=== PATIENT | female | born 1995 | race Two or more races ===

== ENCOUNTER 2019-08-09 21:15 | Emergency (ER) | payer BC ==
[~2019-08-09] VITALS: Ht 157.5 cm; Wt 63.0 kg
[2019-08-09] MEDS ORDERED: KETOROLAC 60MG/2ML VIAL IM ONE (22:30)
[2019-08-09 22:34] LABS: CLARITY URINE CLOUDY (CLEAR); COLOR URINE YELLOW (YELLOW); KETONES URINE NEGATIVE (NEGATIVE); LEUKOCYTE ESTERASE URINE 2+ (NEGATIVE); NITRITE URINE NEGATIVE (NEGATIVE); OCCULT BLOOD URINE 3+ (NEGATIVE); PH URINE 5.5 (4.5-8.0); PROTEIN URINE TRACE (NEGATIVE); SPECIFIC GRAVITY URINE 1.023 (1.005-1.030); UROBILINOGEN URINE 0.2 E.U./dL (0.2-1.0)
[2019-08-09 23:41] VITALS: BP 116/69
== END 2019-08-09 23:43 | disposition home or self-care (01) ==
LOC: ER 21:15
DX: N39.0 Urinary tract infection, site not specified (principal)
CPT/HCPCS: 81003; 81025; 87086; 96372; 99283; J1885

== ENCOUNTER 2021-12-27 20:47 | Emergency (ER) | payer BC ==
[~2021-12-27] VITALS: Ht 165.1 cm; Wt 79.0 kg
[2021-12-27 21:40] VITALS: BP 107/68
[2021-12-27 23:31] LABS: HEMATOCRIT. 38.8 % (36.0-48.0); HEMOGLOBIN. 12.9 g/dL (12.0-16.0); LYMPHOCYTES % 30.8 % (20.0-50.0); MEAN CORPUSCULAR HEMOGLOBIN 28.5 pg (28.0-32.0); MEAN CORPUSCULAR VOLUME 85.9 fL (81.0-99.0); MEAN PLATELET VOLUME 7.9 fl (7.4-10.4); MONOCYTES % 7.1 % (2.0-8.0); NEUTROPHILS % 60.1 % (40.0-76.0); PLATELET 392 x1000/uL (130-400); RED BLOOD CELL COUNT 4.51 mill/uL (4.2-5.4); RED CELL DISTRIBUTION WIDTH 14.2 % (11.6-14.6)
[2021-12-27 23:38] LABS: CHLORIDE 106 mEq/L (98-107)
[2021-12-27 23:49] LABS: B-HCG QUANTITATIVE 2 mIU/mL (<3)
== END 2021-12-28 00:28 | disposition home or self-care (01) ==
LOC: ER 20:47
DX: O46.91 Antepartum hemorrhage, unspecified, first trimester (principal); Z3A.01 Less than 8 weeks gestation of pregnancy
CPT/HCPCS: 36415; 76830; 76856; 80053; 81025; 84702; 85025; 86850; 86900; 99284

== ENCOUNTER 2022-03-28 01:06 | Emergency (ER) | payer BC, OTHER ==
[~2022-03-28] VITALS: Ht 157.5 cm; Wt 76.0 kg
[2022-03-28 03:28] LABS: BASOPHILS % 0.8 % (0.0-2.0); EOSINOPHILS % 0.8 % (0.0-5.0); HEMATOCRIT. 37.4 % (36.0-48.0); HEMOGLOBIN. 12.6 g/dL (12.0-16.0); LYMPHOCYTES % 27.2 % (20.0-50.0); MEAN CORPUSCULAR HEMOGLOBIN 28.5 pg (28.0-32.0); MEAN CORPUSCULAR VOLUME 84.9 fL (81.0-99.0); MEAN PLATELET VOLUME 7.6 fl (7.4-10.4); MONOCYTES % 8.3 % (2.0-8.0); NEUTROPHILS % 62.9 % (40.0-76.0); PLATELET 394 x1000/uL (130-400); RED CELL DISTRIBUTION WIDTH 15.4 % (11.6-14.6)
[2022-03-28 03:31] LABS: CHLORIDE 106 mEq/L (98-107)
[2022-03-28 03:53] LABS: B-HCG QUANTITATIVE 79376 mIU/mL (<3)
[2022-03-28 03:55] LABS: CLARITY URINE CLOUDY (CLEAR); COLOR URINE YELLOW (YELLOW); KETONES URINE TRACE (NEGATIVE); LEUKOCYTE ESTERASE URINE TRACE (NEGATIVE); NITRITE URINE NEGATIVE (NEGATIVE); OCCULT BLOOD URINE NEGATIVE (NEGATIVE); PH URINE 5.5 (4.5-8.0); PROTEIN URINE NEGATIVE (NEGATIVE); SPECIFIC GRAVITY URINE 1.026 (1.005-1.030)
[2022-03-28 04:30] VITALS: BP 125/80
[2022-03-28] MEDS ORDERED: CEPH500C2 MT (04:44)
[2022-03-28] MEDS ORDERED: CEPHALEXIN 250MG CAPSULE PO NR (04:45)
== END 2022-03-28 05:00 | disposition home or self-care (01) ==
LOC: ER 01:06
DX: O23.41 Unspecified infection of urinary tract in pregnancy, first trimester (principal); N39.0 Urinary tract infection, site not specified; Z3A.09 9 weeks gestation of pregnancy
CPT/HCPCS: 36415; 76801; 80053; 81003; 81025; 84702; 85025; 86850; 86900; 99284

== ENCOUNTER 2022-05-14 15:21 | Emergency (ER) | payer BC, OTHER ==
[~2022-05-14] VITALS: Ht 160 cm; Wt 75.0 kg
[~2022-05-14 15:21] MED LIST: CEPH500C2 MT
[2022-05-14 16:31] LABS: CLARITY URINE CLOUDY (CLEAR); COLOR URINE YELLOW (YELLOW); KETONES URINE NEGATIVE (NEGATIVE); LEUKOCYTE ESTERASE URINE TRACE (NEGATIVE); NITRITE URINE NEGATIVE (NEGATIVE); OCCULT BLOOD URINE NEGATIVE (NEGATIVE); PROTEIN URINE TRACE (NEGATIVE); SPECIFIC GRAVITY URINE 1.024 (1.005-1.030); UROBILINOGEN URINE 0.2 E.U./dL (0.2-1.0)
[2022-05-14 17:01] LABS: BASOPHILS % 0.5 % (0.0-2.0); EOSINOPHILS % 0.6 % (0.0-5.0); HEMATOCRIT. 33.9 % (36.0-48.0); HEMOGLOBIN. 11.3 g/dL (12.0-16.0); LYMPHOCYTES % 15.3 % (20.0-50.0); MEAN CORPUSCULAR HEMOGLOBIN 29.2 pg (28.0-32.0); MEAN CORPUSCULAR VOLUME 87.1 fL (81.0-99.0); MEAN PLATELET VOLUME 7.9 fl (7.4-10.4); NEUTROPHILS % 76.6 % (40.0-76.0); PLATELET 342 x1000/uL (130-400); RED BLOOD CELL COUNT 3.89 mill/uL (4.2-5.4); RED CELL DISTRIBUTION WIDTH 15.1 % (11.6-14.6)
[2022-05-14 17:03] LABS: CHLORIDE 107 mEq/L (98-107); PROTHROMBIN TIME 10.5 sec (9.6-11.0)
[2022-05-14 17:28] LABS: B-HCG QUANTITATIVE 8284 mIU/mL (<3)
[2022-05-14 18:00] VITALS: BP 99/51
== END 2022-05-14 18:43 | disposition home or self-care (01) ==
LOC: ER 15:21
DX: O26.892 Other specified pregnancy related conditions, second trimester (principal); R19.7 Diarrhea, unspecified; R55 Syncope and collapse; Z3A.18 18 weeks gestation of pregnancy
CPT/HCPCS: 36415; 76805; 80053; 81003; 81025; 82962; 84702; 85025; 86850; 86900; 93005; 99285

== ENCOUNTER 2022-08-19 20:56 | Observation (INO) | payer MEDICAID, OTHER ==
[~2022-08-19] VITALS: Ht 157.5 cm; Wt 90.7 kg
[2022-08-19 21:31] VITALS: BP 106/74
[2022-08-19] MEDS ORDERED: TOPUD MT (23:04)
[2022-08-19] MEDS ORDERED: DIPH25CA83 MT ×2 (23:04)
[2022-08-20] MEDS ORDERED: PREN1TAB78 PO (01:02)
[2022-08-20] MEDS ORDERED: FERR325T6 PO (01:02)
== END 2022-08-20 02:45 | disposition home or self-care (01) ==
LOC: ER 20:56 → 8 EST LDRP 08-20 00:28 → 8 EST A/PP 08-20 02:01 → 8 EST LDRP 08-20 02:09
PROVIDERS: ADMIT Specialist; ATTEND Specialist
DX: O99.513 Diseases of the respiratory system complicating pregnancy, third trimester (principal); Z20.822 Contact with and (suspected) exposure to COVID-19; R05.9 Cough, unspecified; R09.81 Nasal congestion; O98.513 Other viral diseases complicating pregnancy, third trimester; B34.9 Viral infection, unspecified; Z3A.31 31 weeks gestation of pregnancy; Z79.899 Other long term (current) drug therapy; Z98.890 Other specified postprocedural states; Z98.891 History of uterine scar from previous surgery
CPT/HCPCS: 59025; 87420; 87426; 87804; 99284; C9803; G0378

== ENCOUNTER 2025-01-23 07:37 | Emergency (ER) | payer MEDICAID, OTHER ==
[~2025-01-23] VITALS: Ht 165.1 cm; Wt 75.0 kg
[~2025-01-23 07:37] MED LIST changes: -CEPH500C2 MT; +FERR325T6 PO; +PREN1TAB78 PO; +TOPUD MT
[2025-01-23 07:41] VITALS: O2SAT 99
[2025-01-23 07:45] VITALS: TEMP 36.9; O2SAT 98
[2025-01-23 08:08] VITALS: BP 125/80; PULSE 76; RESP 18
[2025-01-23] MEDS: IBUPROFEN 400MG TABLET PO ONE (08:08)
[2025-01-23] MEDS: ACETAMINOPHEN WITH CODEINE 300/30MG TABLET PO ONE (08:08)
[2025-01-23] MEDS ORDERED: TOPUD PO (09:32)
== END 2025-01-23 09:54 | disposition home or self-care (01) ==
LOC: ER 07:37
DX: M54.50 Low back pain, unspecified (principal); M53.3 Sacrococcygeal disorders, not elsewhere classified; Z79.899 Other long term (current) drug therapy
CPT/HCPCS: 72100; 99283

== ENCOUNTER 2025-03-18 03:58 | Emergency (ER) | payer MEDICAID ==
[~2025-03-18] VITALS: Ht 157.5 cm; Wt 78.0 kg
[~2025-03-18 03:58] MED LIST changes: +TOPUD PO
[2025-03-18 04:07] VITALS: PULSE 85; RESP 18; O2SAT 99
[2025-03-18 04:15] VITALS: BP 123/76; TEMP 36.8; O2SAT 99
[2025-03-18 05:26] LABS: BASOPHILS % 0.5 % (0.0-2.0); EOSINOPHILS % 0.6 % (0.0-5.0); HEMATOCRIT. 37.2 % (36.0-48.0); HEMOGLOBIN. 12.3 g/dL (12.0-16.0); LYMPHOCYTES % 30.9 % (20.0-50.0); MEAN PLATELET VOLUME 7.7 fl (7.4-10.4); MONOCYTES % 7.5 % (2.0-8.0); NEUTROPHILS % 60.5 % (40.0-76.0); PLATELET 361 x1000/uL (130-400); RED BLOOD CELL COUNT 4.31 mill/uL (4.2-5.4); RED CELL DISTRIBUTION WIDTH 15.5 % (11.6-14.6)
[2025-03-18 05:33] LABS: CREATININE 0.7 mg/dL (0.6-1.0); UREA NITROGEN BLOOD 10 mg/dL (9-23)
[2025-03-18 05:42] LABS: CLARITY URINE CLEAR (CLEAR); COLOR URINE YELLOW (YELLOW); GLUCOSE URINE NEGATIVE (NEGATIVE); KETONES URINE NEGATIVE (NEGATIVE); LEUKOCYTE ESTERASE URINE NEGATIVE (NEGATIVE); NITRITE URINE NEGATIVE (NEGATIVE); OCCULT BLOOD URINE NEGATIVE (NEGATIVE); PH URINE 5.5 (4.5-8.0); PROTEIN URINE NEGATIVE (NEGATIVE); SPECIFIC GRAVITY URINE 1.028 (1.005-1.030); UROBILINOGEN URINE 1.0 E.U./dL (0.2-1.0)
[2025-03-18 06:35] VITALS: TEMP 98.3
[2025-03-18] MEDS: ACETAMINOPHEN 325MG TABLET PO ONE (06:35)
[2025-03-18] MEDS: METOCLOPRAMIDE HCL 10MG TABLET PO ONE (06:35)
[2025-03-18 06:55] LABS: ASPARTATE AMINOTRANSFERASE 22 IU/L (<34); BILIRUBIN DIRECT < 0.1 mg/dL (<=3.0); BILIRUBIN TOTAL 0.3 mg/dL (0.1-1.0); PROTEIN TOTAL 6.8 g/dL (6.0-8.3)
[2025-03-18 07:11] LABS: B-HCG QUANTITATIVE 62641 mIU/mL (<6)
== END 2025-03-18 08:15 | disposition left against medical advice (07) ==
LOC: ER 03:58
DX: O26.891 Other specified pregnancy related conditions, first trimester (principal); O21.9 Vomiting of pregnancy, unspecified; R10.2 Pelvic and perineal pain; Z3A.01 Less than 8 weeks gestation of pregnancy
CPT/HCPCS: 99284; 76801; 80076; 80048; 81003; 81025; 84702; 85025; 36415; J8597